=== PATIENT | male | born 1980 | race Caucasian/White ===

== ENCOUNTER 2018-07-08 16:34 | Emergency (ER) | payer BC, MEDICAID ==
[2018-07-08 16:57] VITALS: BMI 28.8
[2018-07-08 17:01] VITALS: BP 158/89; PULSE 84; RESP 15; TEMP 99.3; O2SAT 99
--- NOTE | 2018-07-08 17:22 | C.PDOC ---
History Of Present Illness 38 y/o male presents to the ED for evaluation of sore throat and subjective fever which began this morning. Patient denies ear pain, cough, changes in voice. Time Seen by Provider: 07/08/18 17:01 Chief Complaint (Nursing): ENT Problem History Per: Patient History/Exam Limitations: None Onset/Duration Of Symptoms: Hrs Current Symptoms Are (Timing): Still Present Past Medical History Reviewed: Historical Data, Nursing Documentation, Vital Signs Vital Signs: Last Vital Signs Temp 99.3 F 07/08/18 17:01 Pulse 84 07/08/18 17:01 Resp 15 07/08/18 17:01 BP 158/89 H 07/08/18 17:01 Pulse Ox 99 07/08/18 17:22 - Medical History PMH: No Chronic Diseases Surgical History: No Surg Hx Family History: States: Unknown Family Hx - Social History Hx Tobacco Use: No Hx Alcohol Use: Yes Hx Substance Use: No - Immunization History Hx Tetanus Toxoid Vaccination: No Hx Influenza Vaccination: Yes Hx Pneumococcal Vaccination: No Review Of Systems Constitutional: Positive for: Fever ENT: Positive for: Throat Pain. Negative for: Ear Pain Respiratory: Negative for: Cough Physical Exam - Physical Exam Appears: Non-toxic, No Acute Distress Skin: Normal Color, Warm, Dry Head: Atraumatic, Normacephalic Eye(s): bilateral: Normal Inspection Ear(s): Bilateral: Normal Nose: Normal, No Discharge Oral Mucosa: Moist Throat: Erythema (pharyngeal and tonsillar ), No Exudate, Other (uvula at midline ) Neck: Supple Chest: Symmetrical, No Deformity, No Tenderness Cardiovascular: Rhythm Regular, No Murmur Respiratory: Normal Breath Sounds, No Rales, No Rhonchi, No Wheezing Extremity: Normal ROM, Capillary Refill (less than 2 seconds ) Neurological/Psych: Oriented x3, Normal Speech, Normal Cognition ED Course And Treatment O2 Sat by Pulse Oximetry: 99 (on RA) Pulse Ox Interpretation: Normal Progress Note: Amoxicillin PO and Motrin PO given. On re-exam, patient is resting comfortably, remains afebrile, is showing no signs of distress and is stable for discharge. Patient is advised to f/u with PMD within 1-2 days for further evaluation. Disposition - Disposition Referrals: [facility] [Outside] Disposition: HOME/ ROUTINE Disposition Time: 17:19 Condition: STABLE Additional Instructions: Follow up in Clinic within 1-2 days. Return to ED if feel worse. Prescriptions: Amoxicillin 500 mg PO Q8 #30 tab Ibuprofen [Motrin Tab] 600 mg PO Q8 #30 tab Instructions: Sore Throat, Adult (DC) Forms: [facility] ([place]), Work Excuse - Clinical Impression Clinical Impression: Pharyngitis - PA / MANAGER PRESENTATION / Resident Statement MD/DO has reviewed & agrees with the documentation as recorded. - Scribe Statement The provider has reviewed the documentation as recorded by the Scribe (Jacque Galvez) All medical record entries made by the Scribe were at my direction and personally dictated by me. I have reviewed the chart and agree that the record accurately reflects my personal performance of the history, physical exam, medical decision making, and the department course for this patient. I have also personally directed, reviewed, and agree with the discharge instructions and disposition.
== END 2018-07-08 17:31 | disposition home or self-care (01) ==
LOC: C.ER 16:34
DX: J02.9 Acute pharyngitis, unspecified (principal)